=== PATIENT | male | born 1970 | race Caucasian/White ===

== ENCOUNTER 2017-03-03 12:18 | Emergency (ER) | payer OTHER ==
[~2017-03-03] VITALS: Ht 182.9 cm; Wt 104.3 kg
[2017-03-03] MEDS ORDERED: NEXIUM40 MG PO (12:31)
[2017-03-03 12:58] LABS: INFLUENZA A ANTIGEN None Detected (None Detect); INFLUENZA B ANTIGEN None Detected (None Detect)
[2017-03-03 13:43] LABS: HEMOGLOBIN 14.6 gm/dL (14.0-18.0)
[2017-03-03 13:45] LABS: MCV 86.8 fL (80.0-100.0); NUCLEATED RBCS 0 /100WBC
[2017-03-03 13:55] LABS: ABSOLUTE EOSINOPHILS 0.1 thou/uL (0.0-0.7); ABSOLUTE LYMPHOCYTES 2.1 thou/uL (0.8-5.3); ABSOLUTE MONOCYTES 0.9 thou/uL (0.0-1.2); BASOPHILS 0.8 %; LYMPHOCYTES 33.7 %; MCH 29.5 pg (26.0-34.0); MPV 7.5 fl. (7.2-11.1); PLATELET COUNT* 264 thou/uL (150-400); POLYS 49.5 %; RBC 4.95 mil/uL (4.50-6.00); RDW-CV 13.5 % (10.5-14.5); WBC 6.1 thou/uL (4.0-11.0)
[2017-03-03 14:22] LABS: CALCIUM 8.9 mg/dL (8.5-10.1); CREATININE 1.3 mg/dL (0.6-1.3); POTASSIUM 3.8 mmol/L (3.5-5.1)
[2017-03-03 14:27] LABS: ALBUMIN 3.6 g/dL (3.4-5.0); TOTAL BILIRUBIN 0.4 mg/dL (<0.1-1.0); TOTAL PROTEIN 7.6 g/dL (6.4-8.2)
[2017-03-03 15:33] VITALS: BP 108/78
[2017-03-03] MEDS ORDERED: SPACERADULT INH (15:41)
[2017-03-03] MEDS ORDERED: AZITHROMYCIN 2250 MG PO (15:41)
[2017-03-03] MEDS ORDERED: PROAIR HFA8.5 GM INH (15:41)
== END 2017-03-03 15:56 | disposition home or self-care (01) ==
LOC: M.ERS 12:18
PROVIDERS: Emergency Medicine
DX: J40 Bronchitis, not specified as acute or chronic (principal); J02.0 Streptococcal pharyngitis